=== PATIENT | male | born 1945 | race Caucasian/White ===

== ENCOUNTER 2016-09-16 05:48 | Emergency (ER) | payer OTHER ==
[~2016-09-16] VITALS: Ht 175.3 cm; Wt 86.3 kg
[2016-09-16 05:52] VITALS: Ht 175.3 cm; Wt 86.3 kg
[2016-09-16] MEDS ORDERED: MECLIZINE 12.5 MG TAB PO ONE (06:30)
[2016-09-16 06:52] LABS: ADD SCAN DIFF NO
[2016-09-16 06:55] LABS: BASOPHILS % 0.3 % (0.0-2.0); EOSINOPHILS # 0.2 10^3/ul (0.0-0.5); EOSINOPHILS % 2.5 % (0.0-7.0); HEMOGLOBIN 14.1 g/dl (14.0-18.0); LYMPHOCYTES % 28.7 % (15.0-51.0); MEAN CORPUSCULAR HEMOGLOBIN 30.1 pg (29.0-33.0); MEAN CORPUSCULAR HGB CONC 33.6 g/dl (32.0-37.0); MEAN CORPUSCULAR VOLUME 89.7 fl (82.0-101.0); MEAN PLATELET VOLUME 9.5 fl (7.4-10.4); MONOCYTE # 0.6 10^3/ul (0.3-0.9); MONOCYTES % 7.7 % (0.0-11.0); NEUTROPHIL # 4.3 10^3/ul (1.6-7.5); PLATELET COUNT 246 10^3/UL (140-415); RED BLOOD COUNT 4.68 10^6/ul (4.70-6.10); RED CELL DISTRIBUTION WIDTH 13.1 % (11.5-14.5); WHITE BLOOD COUNT 7.1 10^3/ul (4.8-10.8)
[2016-09-16 07:12] LABS: CHLORIDE 99 mmol/L (97-110); INR 0.89; PT RATIO 0.9
[2016-09-16 07:13] LABS: PARTIAL THROMBOPLASTIN TIME 26.5 Sec (25.0-35.0); POTASSIUM 3.8 mmol/L (3.5-5.1); SODIUM 135 mmol/L (135-144)
--- NOTE | 2016-09-16 07:14 | RADRPT ---
PROCEDURE: CT brain without contrast. CLINICAL INDICATION: Dizziness. TECHNIQUE: CT scan of the brain was performed on a multi-detector high-resolution CT scanner. Co ntiguous axial images were obtained from the skull base to the vertex without intravenous contrast. Coronal and sagittal reformatted images were also obtained. Images were reviewed on the PACS works tation. One or more of the following dose reduction techniques were used: - Automated exposure control. - Adjustment of the mA and/or kV according to patient size. - Use of iterative reconstruction technique. Exam CTD/vol = 45.01 mGy. Total exam DLP = 810.25 mGy-cm. COMPARISON: None. FINDINGS: The ventricles and cortical sulci are prominent consistent with mild age related volume loss. There is no area of abnormal attenuation within the brain parenchyma. There is no mass effect or midline shift. There is no intracranial hemorrhage or abnormal extra-axial collection. There are atheroscl erotic calcifications within bilateral distal internal carotid arteries. The calvarium is intact. There is no evidence of fracture. Visualized paranasal sinuses and mastoi d air cells are clear. IMPRESSION: No acute intracranial abnormality identified. Mild age related volume loss. Cerebral atherosclerosis. .Florentin Pearce MD, MD Date Time Electronically viewed and signed by .Florentin Pearce MD, MD on 09/16/2016 07:14 .T/
[2016-09-16 07:15] LABS: ANION GAP 14 (8-16); CARBON DIOXIDE 26 mmol/L (21-31); CREATININE 0.68 mg/dl (0.61-1.24)
[2016-09-16 07:16] LABS: BLOOD UREA NITROGEN 23 mg/dl (7-20); CALCIUM 8.6 mg/dl (8.4-10.2); GLUCOSE 180 mg/dl (70-220)
--- NOTE | 2016-09-16 07:22 | RADRPT ---
PROCEDURE: XR Chest. CLINICAL INDICATION: Possible stroke. TECHNIQUE: Single frontal chest x-ray. COMPARISON: None available. FINDINGS: The cardiomediastinal silhouette is unremarkable. Aortic atherosclerotic vascular calcifications are identified. No pneumothorax, pleural effusion or consolidation is seen. There are multilevel mild degenerative changes of thoracic spine with decreased disk spaces and oste ophytosis. IMPRESSION: 1. No acute cardiopulmonary abnormality. 2. Aortic atherosclerosis. RPTAT: HFN .Afia Prescott MD, Date Time Electronically viewed and signed by .Afia Prescott MD, on 09/16/2016 07:21 .N/
[2016-09-16 07:39] LABS: TROPONIN-I < 0.012 ng/ml (0.00-0.12)
[2016-09-16] MEDS ORDERED: MECL12.574 PO (08:09)
--- NOTE | 2016-09-16 08:09 | ERD ---
ER Documentation Chief Complaint Date/Time DATE: 09/16/16 TIME: 08:09 Chief Complaint dizzinessx 1 week HPI Patient is a 71-year-old male with diabetes who presents with dizziness. The patient feels like the room is spinning. The symptoms started 5 days ago. They are still there now. He has mild chest pain. He has had no treatment as of yet. He has no fevers. The symptoms are constant. Upon review of old medical records this is the patient's first visit to the emergency department. He says that his primary doctor is Dr. La. ROS All systems reviewed and are negative except as per history of present illness. Medications Home Meds Active Scripts Meclizine Hcl* (Antivert*) 12.5 Mg Tab, 25 MG PO Q6H Y for DIZZINESS, #20 TAB Prov:SHANDA SCHOFIELD MD 09/16/16 Allergies Allergies: Coded Allergies: No Known Allergy (Unverified , 09/16/16) PMhx/Soc Positive for diabetes History of Surgery: No Anesthesia Reaction: No Hx Neurological Disorder: No Hx Respiratory Disorders: No Hx Cardiac Disorders: No Hx Psychiatric Problems: No Hx Miscellaneous Medical Probl: No Hx Alcohol Use: No Hx Substance Use: No Hx Tobacco Use: No Smoking Status: Never smoker FmHx Family History: diabetes Physical Exam Vitals Vital Signs Date Time Temp Pulse Resp B/P Pulse Ox O2 Delivery O2 Flow Rate FiO2 09/16/16 05:52 96.9 66 20 142/76 99 Physical Exam Const: No acute distress Head: Atraumatic Eyes: Normal Conjunctiva ENT: Normal External Ears, Nose and Mouth. Neck: Full range of motion..~ No meningismus. Resp: Clear to auscultation bilaterally Cardio: Regular rate and rhythm, no murmurs Abd: Soft, non tender, non distended. Normal bowel sounds Skin: No petechiae or rashes Back: No midline or flank tenderness Ext: No cyanosis, or edema Neur: Awake and alert, no slurred speech, strength is 5 out of 5 in all 4 extremities, no pronator drift, cranial nerves II through XII are intact Psych: Normal Mood and Affect Result Diagram: 09/16/16 0630 09/16/16 0630 Results 24 hrs Laboratory Tests Test 09/16/16 06:30 White Blood Count 7.110^3/ul Red Blood Count 4.6810^6/ul Hemoglobin 14.1g/dl Hematocrit 42.0% Mean Corpuscular Volume 89.7fl Mean Corpuscular Hemoglobin 30.1pg Mean Corpuscular Hemoglobin Concent 33.6g/dl Red Cell Distribution Width 13.1% Platelet Count 17830^3/UL Mean Platelet Volume 9.5fl Neutrophils % 60.0% Lymphocytes % 28.7% Monocytes % 7.7% Eosinophils % 2.5% Basophils % 0.3% Nucleated Red Blood Cells % 0.0/100WBC Neutrophils # 4.310^3/ul Lymphocytes # 2.010^3/ul Monocytes # 0.610^3/ul Eosinophils # 0.210^3/ul Basophils # 0.010^3/ul Nucleated Red Blood Cells # 0.010^3/ul Prothrombin Time 12.0Sec Prothrombin Time Ratio 0.9 INR International Normalized Ratio 0.89 Activated Partial Thromboplast Time 26.5Sec Sodium Level 135mmol/L Potassium Level 3.8mmol/L Chloride Level 99mmol/L Carbon Dioxide Level 26mmol/L Anion Gap 14 Blood Urea Nitrogen 23mg/dl Creatinine 0.68mg/dl Glucose Level 180mg/dl Hemoglobin A1c % Calcium Level 8.6mg/dl Troponin I < 0.012ng/ml Current Medications Medications (Trade) Dose Ordered Sig/Emanuel Route PRN Reason Start Time Stop Time Status Last Admin Dose Admin Meclizine HCl (Antivert) 25 mg ONCE ONCE PO 09/16/16 06:30 09/16/16 06:31 DC 09/16/16 06:51 Procedures/MDM EKG read by me: Rate/Rhythm: Sinus bradycardia rate of 58 Intervals: Normal Impression: Sinus bradycardia without ischemia CT brain shows no acute normality per radiology. Chest x-ray negative per radiology. Patient is a 71-year-old male with diabetes who presents with dizziness. He had a full workup including laboratory studies, CT scan of the brain, and EKG. At this point there is no sign of obvious stroke, intracranial mass, or intracranial hemorrhage. I believe the patient likely has vertigo. However the patient will need close follow-up with his primary doctor within 24-48 hours for reevaluation. He was given meclizine and feels better. He can return for any worsening symptoms. Neurologic exam was normal. Departure Diagnosis: Primary Impression: Vertigo Additional Impression: Dizziness Condition: Fair Patient Instructions: Dizziness, Unk Cause Referrals: [facility] Usted se olmos hecho un examen mdico de control que le indica que no est en daniel condicin que requiera tratamiento urgente en el Departamento de Emergencia. Un estudio ms profundo y el tratamiento de martin condicin pueden esperar sin ningn riesgo hasta que usted sea atendida/o en el consultorio de martin mdico o daniel cl korey. Es responsabilidad suya arreglar daniel donovan para el seguimiento del ankita. MANEJO DE CONDICIONES NO URGENTES EN EL FUTURO 1) Si usted tiene un mdico de atencin primaria: Usted debera llamar a martin mdico de atencin primaria antes de venir al departamento de emergencia. Despus de las horas de consultorio, martin doctor o martin asociado/a est disponible por telfono. El mdico o enfermero de miller en el servicio telefnico puede asesorarle por little medio para atender el problema, o ankita contrario se puede programar daniel donovan. 2) Si usted no tiene un mdico de atencin primaria: Llame al mdico o clnica de referencia que aparece abajo jett las horas de consultorio para hacer daniel donovan para que le vean. CLINICAS: [facility] [phone] [facility] [phone] [facility]. [facility] [phone] [facility]. [facility] [phone] [facility]. [place] [id number] [phone] [facility]. [phone] [address] Additional Instructions: Llame al doctor MAANA y liang daniel DONOVAN PARA DENTRO DE 1-2 DUTTON.Dgale a la secretaria que nosotros le instruimos hacer esta donovan.Avise o llame si martin condicin se empeora antes de la donovan. Regresa aqui si peor o no mejor. SHANDA SCHOFIELD MD September 16, 2016 08:09
[2016-09-16 08:33] VITALS: BP 126/74; PULSE 76; RESP 20
== END 2016-09-16 08:43 | disposition home or self-care (01) ==
LOC: E/R 05:48
DX: R42 Dizziness and giddiness (principal); E11.9 Type 2 diabetes mellitus without complications; R07.9 Chest pain, unspecified
CPT/HCPCS: 36415; 70450; 71010; 80048; 83036; 84484; 85025; 85610; 85730; 93005

== ENCOUNTER 2018-08-10 06:24 | Day surgery (SDC) | payer OTHER ==
[~2018-08-10] VITALS: Ht 175.3 cm; Wt 181.0 kg
[2018-08-10] VITALS (8 sets, daily range): BP systolic 106–147; BP diastolic 62–78; PULSE 62–66; RESP 12–16; Ht 175.3 cm; Wt 181.0 kg
[~2018-08-10 06:24] MED LIST: MECL12.574 PO
--- NOTE | 2018-08-10 06:58 | PREOPHP ---
DATE OF ADMISSION: 08/10/2018 HISTORY OF PRESENT ILLNESS: This 75-year-old patient is admitted for elective cataract surgery of th e right eye. The patient has had progressive deterioration of vision in both eyes over the past year s' time without prior history of eye disease or injury. Patient's systemic history is positive for i nsulin-dependent diabetes mellitus and systemic hypertension. CURRENT MEDICATIONS INCLUDE: 1. Lisinopril. 2. Januvia. 3. Insulin. 34 Aspirin (stopped 1 week prior to surgery). ALLERGIES: There are no known allergies. PHYSICAL EXAMINATION: The visual acuity with best correction is 20/100 in the right eye and 20/80 in the left eye. Slit lamp examination reveals a diffuse posterior subcapsular cataract in the right e ye and cortical and vacuolar cataract in the left eye. Applanation tonometry is 17 mmHg in both eyes . Examination of the retina is grossly within normal limits without evidence of diabetic retinopathy . DIAGNOSIS: Posterior subcapsular cataract, left eye. PLAN: Cataract extraction with lens implant, left eye. The risks and alternatives to the surgery olmos ve been discussed with the patient as well as the hope for improvement of visual acuity leading to gr eater ability to perform activities of daily living. Dictated By: HOLLY BOCANEGRA/BRUNILDA Conf#: [id number] DID#: [id number]
[2018-08-10] MEDS ORDERED: TROPICAMIDE 1% 15 ML OPH OPER SCH (07:00)
[2018-08-10] MEDS ORDERED: DICLOFENAC 0.1% 2.5 ML OPH OPER SCH (07:00)
[2018-08-10] MEDS ORDERED: SOD CHLORIDE 0.9% 1,000 ML IV SCH (07:00)
[2018-08-10] MEDS ORDERED: CYCLOPENTOLATE/PHENYLEPH 2 ML OPH OPER SCH (07:00)
[2018-08-10] MEDS ORDERED: MOXIFLOXACIN 0.5% 3 ML OPH OPER SCH (07:00)
--- NOTE | 2018-08-10 07:48 | PREAC ---
Date/Time of Note Date/Time of Note DATE: 08/10/18 TIME: 07:47 Anesthesia Eval and Record Evaluation Time Pre-Procedure Interview DATE: 08/10/18 TIME: 07:47 Age 73 Sex male NPO: 8 hrs Preoperative diagnosis right eye cataract Planned procedure right eye cataract extraction intraocular lens implant Past Medical History Past Medical History: Includes Cardio: HTN, Dyslipidemia Endo: Diabetes (preop glucose 181) Surgery & Anesthesia Issues No known issue Meds Anticoagulation: No Beta Burt within 24 hr: No Reason Beta Burt not given: Pt. not on B-Burt Active Scripts Meclizine Hcl* (Antivert*) 12.5 Mg Tab, 25 MG PO Q6H PRN for DIZZINESS, #20 TAB Prov:SHANDA SCHOFIELD MD 09/16/16 Reported Medications Insulin Aspart (Novolog Mix (70/30)) 100 Units/Ml Soln, 38 SC WITH BREAKFAST DINNE, VIAL 08/10/18 Current Medications Diclofenac Sodium (Voltaren 0.1%) 1 drop Q5 MIN X 3 OPER Last administered on 08/10/18at 07:38; Admin Dose 1 DROP; Start 08/10/18 at 07:00 Tropicamide (Mydriacyl 1%) 1 drop Q5 MIN X3 OPER Last administered on 08/10/18at 07:38; Admin Dose 1 DROP; Start 08/10/18 at 07:00 Moxifloxacin HCl (Vigamox) 1 drop Q5 MIN X 3 OPER Last administered on 08/10/18at 07:39; Admin Dose 1 DROP; Start 08/10/18 at 07:00 Cyclopentolate/ Phenylephrine (Cyclomydril Oph 2 ml) 1 drop Q5 MIN X 3 OPER Last administered on 08/10/18at 07:39; Admin Dose 1 DROP; Start 08/10/18 at 07:00 Sodium Chloride 1,000 ml @ 25 mls/hr Q24H IV ; Start 08/10/18 at 07:00 Meds reviewed: Yes Allergies Coded Allergies: No Known Allergy (Unverified , 08/10/18) Allergies Reviewed: Yes Labs/Studies Labs Reviewed: Reviewed by anesthesiologist test: N/A Studies: ECG, CXR Pre-procedure Exam Airway: Adequate mouth opening, Adequate thyromental dist Mallampati: Mallampati II Teeth: Normal Lung: Normal Heart: Normal ASA Physical Status ASA physical status: 3 Emergency: None Planned Anesthetic General/MAC: MAC Planned Pain Management Parenteral pain med, Local by surgeon Pre-operative Attestations Prior to commencing anesthesia and surgery, the patient was re-evaluated, there was verification of: *The patient's identity *The results of appropriate recent lab work and preoperative vital signs *The above evaluation not changing prior to induction *Anesthetic plan, risk benefits, alternative and complications discussed with patient/family; questions answered; patient/family understands, accepts and wishes to proceed. JAYLA MCKEON Aug 10, 2018 07:48
[2018-08-10] MEDS ORDERED: LIDOCAINE 4% (MPF) 5 ML INJ ONE (08:17)
[2018-08-10] MEDS ORDERED: CEFAZOLIN 1 GM INJ ONE (08:17)
[2018-08-10] MEDS ORDERED: CARBACHOL 0.01% 1.5 ML OPH INJ ONE (08:17)
[2018-08-10] MEDS ORDERED: TETRACAINE 0.5% 4 ML OPH ONE (08:17)
[2018-08-10] MEDS ORDERED: GENTAMICIN 80 MG INJ ONE (08:17)
[2018-08-10] MEDS ORDERED: DEXAMETHASONE 4 MG/ML 1 ML INJ ONE (08:17)
[2018-08-10] MEDS ORDERED: NOVMIX SC (08:21)
[2018-08-10] MEDS ORDERED: FENTAnyl 50 MCG/ML VIAL ONE (08:35)
[2018-08-10] MEDS ORDERED: PROPOFOL 20 ML ONE (08:43)
[2018-08-10] MEDS ORDERED: FENTAnyl 50 MCG/ML VIAL IV PRN ×3 (09:00)
[2018-08-10] MEDS ORDERED: LABETALOL HCL 20MG INJ IV PRN (09:00)
[2018-08-10] MEDS ORDERED: hydrALAzine 20 MG INJ IV PRN (09:00)
[2018-08-10] MEDS ORDERED: OXYCODONE/ACETAMINOPHEN (5/325) TAB PO PRN ×2 (09:00)
[2018-08-10] MEDS ORDERED: ONDANSETRON 4 MG INJ IV PRN (09:00)
[2018-08-10] MEDS ORDERED: NA HYALURONATE/CHONDROITIN 0.5 ML SYG RIGHT EYE ONE (09:10)
--- NOTE | 2018-08-10 09:10 | SIPON ---
Date/Time of Note Date/Time of Note DATE: 08/10/18 TIME: 09:09 Operative Report Preoperative Diagnosis nuclear scleroticand posterior subcapsular cataract od Postoperative Diagnosis same Operation/Procedure Performed cataract extraction with lens implant od Surgeon holly urias manufacturing assistant none Anesthesia: MAC Estimated blood loss: none Transfusion Required none Specimen none Grafts/Implants posterior chamber lens implant Complications none HOLLY URIAS MD Aug 10, 2018 09:10
--- NOTE | 2018-08-10 09:52 | PAC ---
Date/Time of Note Date/Time of Note DATE: 08/10/18 TIME: 09:52 Post-Anesthesia Notes Post-Anesthesia Note Last documented vital signs Vital Signs Date Temp Pulse Resp B/P (MAP) Pulse Ox O2 O2 Flow FiO2 Time Delivery Rate 08/10/18 64 15 109/62 96 Room Air 09:36 (78) 08/10/18 97.8 09:11 Activity: WNL Respiratory function: WNL Cardiovascular function: WNL Mental status: Baseline Pain reasonably controlled: Yes Hydration appropriate: Yes Nausea/Vomiting absent: Yes JAYLA MCKEON Aug 10, 2018 09:52
--- NOTE | 2018-08-10 14:10 | OPR ---
DATE OF OPERATION: 08/10/2018 PREOPERATIVE DIAGNOSIS: Nuclear sclerotic and posterior subcapsular cataract, right eye. POSTOPERATIVE DIAGNOSIS: Nuclear sclerotic and posterior subcapsular cataract, right eye. OPERATION PERFORMED: Cataract extraction with lens implant, right eye. SURGEON: Holly Shepard MD. ANESTHESIOLOGIST: Dutch Suarez CRNA. ANESTHESIA: Local standby. OPERATION: Phacoemulsification with posterior chamber intraocular lens implant, right eye. PROCEDURE: The patient was brought to the operating room and placed on the table with an IV in place and the patient attached to an associate professor of counseling. Oxygen was given via face mask. After some intravenous sedation was administered, local anesthesia was given using Xylocaine 2% with epinephrine, mixed with Marcaine 0.5%. This was given in a lid block and retrobulbar injection. The p atient was then prepped and draped in the usual sterile manner. A wire lid speculum was inserted between the lids of the right eye. A Superblade was used to enter th e anterior chamber at the corneoscleral limbus at the 10:30 o'clock position. A separate incision was made using a 3.0-mm keratome which entered the corneoscleral junction at the 12 o'clock position. Th rough this 3-mm opening, an irrigating cystotome was introduced into the anterior chamber. The chambe r was filled with Viscoat and an anterior capsulotomy was performed. Balanced salt solution was then used for hydrodissection of the lens. A phacoemulsification handpiece was then brought into the fiel d and introduced into the anterior chamber. The lens nucleus was emulsified using a deep groove and c racking the nucleus into quadrants. Following this, each quadrant was aspirated and emulsified at the pupillary margin. After this was completed, the irrigation/aspiration handpiece was brought to the field, introduced in to the posterior chamber, and the lens cortical material was removed. When this was completed, additi onal Viscoat was injected into the anterior and posterior chambers. The 3-mm opening had its internal lips enlarged, and then the posterior chamber intraocular lens mario uring 20.0 diopters ([employer] Model LI61AO) was then injected into the posterior c hamber using the lens injector system. After the leading haptic was introduced into the capsular bag and the lens optic was present in the center of the eye, the injector was removed and the trailing olmos ptic was grasped with non-toothed forceps and introduced into the capsular fold superiorly. A Sinskey hook was then used to rotate the intraocular lens so that the lips were oriented in the horizontal m eridian. One 10-0 nylon suture was placed across the wound. Prior to tying, the irrigation/aspiration handpiece was reintroduced into the anterior chamber to rem ove the Viscoat. Miochol was instilled to constrict the pupil, and then the 10-0 nylon suture was tie d. The ends were cut short and then the knot was buried. Then, 0.5 mL of dexamethasone and 0.5 mL of Ancef were injected into the sub-Tenon space in the infer ior fornix. Ciloxan drops were then placed on the surface of the eye. The speculum was removed and a patch was applied. The patient then left the operating room in satisfactory condition. Dictated By: HOLLY BOCANEGRA/BRUNILDA Conf#: [id number] DID#: [id number]
== END 2018-08-10 10:21 | disposition home or self-care (01) ==
LOC: SDS 06:24
PROVIDERS: ATTEND Ophthalmology
DX: H25.11 Age-related nuclear cataract, right eye (principal); E11.9 Type 2 diabetes mellitus without complications; I10 Essential (primary) hypertension
CPT/HCPCS: 66984; 82962; J0690; J1100; J1580; J3010; V2632

== ENCOUNTER 2018-08-24 08:24 | Day surgery (SDC) | payer OTHER ==
[2018-08-24] VITALS (9 sets, daily range): BP systolic 98–122; BP diastolic 60–71; PULSE 60–72; RESP 16–26; Ht 165.1 cm; Wt 94.1 kg
[~2018-08-24] VITALS: Ht 165.1 cm; Wt 94.1 kg
--- NOTE | 2018-08-24 08:20 | PREOPHP ---
DATE OF ADMISSION: 08/24/2018 HISTORY OF PRESENT ILLNESS: This 73-year-old admitted for repositioning of an iris prolapse of the r ight eye. Two weeks ago, the patient underwent cataract extraction with lens implant of the right ey e in an uneventful surgery. He was subsequently seen on the first postoperative day and there was no evidence of wound dehiscence or iris prolapse. The patient now returns 2 weeks later without any vi sual complaints or pain involving the right eye. PHYSICAL EXAMINATION: The patient is noted to have corrected visual acuity of 20/60+2 in the right e ye. Slit lamp examination notes that there is of iris which has prolapsed out of the corneal w ound and is exposed to the exterior. The patient's anterior chamber still has a moderate degree of i nflammatory cells. The intraocular lens is in appropriate position. Applanation tonometry is 20 mmH g. DIAGNOSTIC IMPRESSION: Postoperative iris prolapse, right eye. PLAN: Repositioning prolapsed iris and closure of the corneal wound, right eye. COMMENT: This patient should have resolution of the inflammation allowing him to obtain a normal vis ion without being endanger from developing secondary ocular infection which may cause endophthalmitis as an unfortunate serious complication. The patient understands this and agrees to proceed with ashley jones. Dictated By: HOLLY BOCANEGRA/BRUNILDA Conf#: [id number] DID#: [id number]
--- NOTE | 2018-08-24 08:23 | SIPON ---
Date/Time of Note Date/Time of Note DATE: 08/24/18 TIME: 08:21 Operative Report Preoperative Diagnosis nuclear sclerotic cataract os Postoperative Diagnosis same Operation/Procedure Performed cataract extraction with lens implant os Surgeon holly urias assistant editor none Anesthesia: MAC Estimated blood loss: none Transfusion Required none Specimen none Grafts/Implants posterior chamber lens implant Complications none HOLLY URIAS MD Aug 24, 2018 08:22
[~2018-08-24 08:24] MED LIST changes: +NOVMIX SC
[2018-08-24] MEDS ORDERED: SOD CHLORIDE 0.9% 1,000 ML IV SCH (09:00)
[2018-08-24] MEDS ORDERED: MOXIFLOXACIN 0.5% 3 ML OPH OPER SCH (09:00)
[2018-08-24] MEDS ORDERED: SITA100T11 PO (09:09)
[2018-08-24] MEDS ORDERED: LISI40TA3 PO (09:09)
[2018-08-24] MEDS ORDERED: ATOR40TA68 PO (09:09)
[2018-08-24] MEDS ORDERED: LIDOCAINE 4% (MPF) 5 ML INJ ONE (10:14)
[2018-08-24] MEDS ORDERED: TOBRAMYCIN/DEXAMETH 3.5 GM OPH OINT ONE (10:15)
[2018-08-24] MEDS ORDERED: CARBACHOL 0.01% 1.5 ML OPH INJ ONE (10:15)
[2018-08-24] MEDS ORDERED: BALANCED SALT SOLN 15 ML OPH IRRIG ONE (10:15)
[2018-08-24] MEDS ORDERED: TETRACAINE 0.5% 4 ML OPH ONE (10:15)
--- NOTE | 2018-08-24 10:18 | PREAC ---
Date/Time of Note Date/Time of Note DATE: 08/24/18 TIME: 10:17 Anesthesia Eval and Record Evaluation Time Pre-Procedure Interview DATE: 08/24/18 TIME: 10:17 Age 73 Sex male NPO: 8 hrs Preoperative diagnosis right iris prolapse Planned procedure right iris prolapse repair Past Medical History Past Medical History: Includes Cardio: HTN, Dyslipidemia Endo: Diabetes Surgery & Anesthesia Issues No known issue Meds Anticoagulation: No Beta Burt within 24 hr: No Reason Beta Burt not given: Pt. not on B-Burt Reported Medications Lisinopril* (Lisinopril*) 40 Mg Tablet, 40 MG PO DAILY, #30 TAB 08/24/18 Atorvastatin* (Atorvastatin*) 40 Mg Tablet, 40 MG PO QHS, #30 TAB 08/24/18 Sitagliptin* (Januvia*) 100 Mg Tablet, 100 MG PO DAILY, #30 TAB 08/24/18 Insulin Aspart (Novolog Mix (70/30)) 100 Units/Ml Soln, 38 SC WITH BREAKFAST DINNE, VIAL 08/10/18 Discontinued Scripts Meclizine Hcl* (Antivert*) 12.5 Mg Tab, 25 MG PO Q6H PRN for DIZZINESS, #20 TAB Prov:SHANDA SCHOFIELD MD 09/16/16 Current Medications Moxifloxacin HCl (Vigamox) 1 drop Q5 MIN X 3 OPER Last administered on 08/24/18at 09:08; Admin Dose 1 DROP; Start 08/24/18 at 09:00 Sodium Chloride 1,000 ml @ 25 mls/hr Q24H IV Last administered on 08/24/18at 09:13; Admin Dose 25 MLS/HR; Start 08/24/18 at 09:00 Meds reviewed: Yes Allergies Coded Allergies: No Known Allergy (Unverified , 08/24/18) Allergies Reviewed: Yes Labs/Studies Labs Reviewed: Reviewed by anesthesiologist test: N/A Pre-procedure Exam Last vitals Vital Signs Date Temp Pulse Resp B/P (MAP) Pulse Ox O2 O2 Flow FiO2 Time Delivery Rate 08/24/18 98.6 72 16 115/71 96 09:27 (86) Airway: Adequate mouth opening, Adequate thyromental dist Mallampati: Mallampati II Teeth: Normal Lung: Normal Heart: Normal ASA Physical Status ASA physical status: 2 Emergency: None Planned Anesthetic General/MAC: MAC Planned Pain Management Parenteral pain med Pre-operative Attestations Prior to commencing anesthesia and surgery, the patient was re-evaluated, there was verification of: *The patient's identity *The results of appropriate recent lab work and preoperative vital signs *The above evaluation not changing prior to induction *Anesthetic plan, risk benefits, alternative and complications discussed with patient/family; questions answered; patient/family understands, accepts and wishes to proceed. ALYCIA LANG Aug 24, 2018 10:18
[2018-08-24] MEDS ORDERED: LIDOCAINE 2% (SDV) 5 ML INJ ONE (10:22)
[2018-08-24] MEDS ORDERED: PROPOFOL 20 ML ONE (10:22)
--- NOTE | 2018-08-24 11:05 | PAC ---
Date/Time of Note Date/Time of Note DATE: 08/24/18 TIME: 11:05 Post-Anesthesia Notes Post-Anesthesia Note Last documented vital signs Vital Signs Date Temp Pulse Resp B/P (MAP) Pulse Ox O2 O2 Flow FiO2 Time Delivery Rate 08/24/18 98.6 72 16 115/71 96 1105 (86) Activity: WNL Respiratory function: WNL Cardiovascular function: WNL Mental status: Baseline Pain reasonably controlled: Yes Hydration appropriate: Yes Nausea/Vomiting absent: Yes ALYCIA LANG Aug 24, 2018 11:05
--- NOTE | 2018-08-24 11:08 | SIPON ---
Date/Time of Note Date/Time of Note DATE: 08/24/18 TIME: 11:07 Operative Report Preoperative Diagnosis iris prolapse, od Postoperative Diagnosis same Operation/Procedure Performed repositing prolapsed iris od Surgeon holly urias speech language assistant none Anesthesia: MAC Estimated blood loss: none Transfusion Required none Specimen none Grafts/Implants none Complications none HOLLY URIAS MD Aug 24, 2018 11:08
[2018-08-24] MEDS ORDERED: hydrALAzine 20 MG INJ IV PRN (11:30)
[2018-08-24] MEDS ORDERED: ONDANSETRON 4 MG INJ IV PRN (11:30)
[2018-08-24] MEDS ORDERED: OXYCODONE/ACETAMINOPHEN (5/325) TAB PO PRN ×2 (11:30)
[2018-08-24] MEDS ORDERED: LABETALOL HCL 20MG INJ IV PRN (11:30)
[2018-08-24] MEDS ORDERED: EPHEDrine SULFATE 50 MG/5 ML SYG IV PRN (11:30)
[2018-08-24] MEDS ORDERED: FENTAnyl 50 MCG/ML VIAL IV PRN ×2 (11:30)
[2018-08-24] MEDS ORDERED: DIPHENHYDRAMINE 50 MG INJ IV PRN (11:30)
[2018-08-24] MEDS ORDERED: MIDAZOLAM 1 MG/ML 2 ML INJ IV PRN (11:30)
--- NOTE | 2018-08-24 13:33 | OPR ---
DATE OF OPERATION: 08/24/2018 PREOPERATIVE DIAGNOSIS: Iris prolapse, right eye. POSTOPERATIVE DIAGNOSIS: Iris prolapse, right eye. OPERATION PERFORMED: Repositing of prolapsed iris and suturing of corneal wound, right eye. SURGEON: Holly Shepard MD ANESTHESIOLOGIST: Dr. Quiros DESCRIPTION OF PROCEDURE: The patient is 2 weeks status post cataract surgery of the right eye. He was doing well initially, but on the 2-week visit, the patient returned and was noted to have prolaps ed iris at the site of the surgical wound. The patient is brought to the operating room on an on an eye gurney, positioned appropriately, attached to electrocardiogram monitoring, given oxygen via face mask. The patient received some intravenous sedation and then local anesthesia using Marcaine 4% gi baljinder in lid block and retrobulbar injection. The patient was then prepped and draped in the usual sondra rile manner and a speculum was inserted between the lids of the right eye. An attempt is made to rep osit the prolapsed iris by using nontoothed forceps and Viscoat injection. However, this failed to a llow the iris to reposit itself in its appropriate away from the wound; therefore, it was decided to open the once 10-0 nylon suture that had been placed at the end of surgery, remove it and then inject some Miostat to constrict the pupil. With the addition of some Viscoat, suturing of the wound was p erformed without any iris tissue incorporated in the suturing. Three separate 10-0 nylon sutures wer e placed and tied and the ends were cut short and the knots were buried. A separate paracentesis inc ision was then made in the nasal quadrant through clear cornea using a Superblade and a spatula was u sed to sweep the iris away from the corneal wound. Additional Miostat was instilled and then it was noted that the pupil assumed became miotic and was round in shape, indicating that the iris was no lo nger at the internal lips of the wound. The speculum was then removed. Vigamox drops were placed on the surface of the eye and then the patient left the operating room with an eye shield in place. Dictated By: HOLLY BOCANEGRA/BRUNILDA Conf#: [id number] DID#: [id number]
== END 2018-08-24 13:13 | disposition home or self-care (01) ==
LOC: SDS 08:24
PROVIDERS: ATTEND Ophthalmology
DX: H21.89 Other specified disorders of iris and ciliary body (principal); I10 Essential (primary) hypertension; E78.5 Hyperlipidemia, unspecified; E11.9 Type 2 diabetes mellitus without complications; Z79.84 Long term (current) use of oral hypoglycemic drugs; Z79.4 Long term (current) use of insulin
CPT/HCPCS: 82962

== ENCOUNTER 2018-11-09 06:30 | Day surgery (SDC) | payer OTHER ==
--- NOTE | 2018-11-08 16:03 | PREOPHP ---
DATE OF ADMISSION: 11/09/2018 HISTORY OF PRESENT ILLNESS: This 73-year-old patient is admitted for elective cataract surgery of th e left eye. The patient has had progressive deterioration of vision in both eyes and 3 months ago un derwent cataract surgery of the right eye with good visual result. The patient's systemic history is positive for insulin-dependent diabetes mellitus and systemic hypertension. CURRENT MEDICATIONS INCLUDE: 1. Lisinopril. 2. Januvia. 3. Insulin. 4. Aspirin (discontinued 1 week prior to surgery). ALLERGIES: THERE ARE NO KNOWN ALLERGIES. PHYSICAL EXAMINATION: The visual acuity with best correction is 20/30 in the right eye and 20/200 in the left eye. Slit lamp examination of note is a posterior chamber intraocular lens in the right ey e and anterior cortical nuclear sclerotic and posterior subcapsular cataract in the left eye. Applan ation tonometry is 16 mmHg. Examination of the retina does not reveal the presence of any diabetic r etinopathy. DIAGNOSIS: Mixed cataract, left eye. PLAN: Cataract extraction with lens implant, left eye. The risks and alternatives to the surgery olmos ve been discussed with the patient as well as the hope for improvement of visual acuity leading to gr eater ability to perform activities of daily living. The patient understands this and agrees to proc eed with surgery. Dictated By: HOLLY BOCANEGRA/BRUNILDA Conf#: [id number] DID#: [id number]
[~2018-11-09] VITALS: Ht 175.3 cm; Wt 94.4 kg
[2018-11-09] VITALS (10 sets, daily range): BP systolic 99–120; BP diastolic 59–70; PULSE 62–66; RESP 13–22; Ht 175.3 cm; Wt 94.4 kg
[~2018-11-09 06:30] MED LIST changes: +ATOR40TA68 PO; +LISI40TA3 PO; -MECL12.574 PO; +SITA100T11 PO
[2018-11-09] MEDS ORDERED: SOD CHLORIDE 0.9% 1,000 ML IV SCH (07:00)
[2018-11-09] MEDS ORDERED: TROPICAMIDE 1% 15 ML OPH OPER SCH (07:00)
[2018-11-09] MEDS ORDERED: DICLOFENAC 0.1% 2.5 ML OPH OPER SCH (07:00)
[2018-11-09] MEDS ORDERED: BALANCED SALT SOLN OPH IRRIG 500 ML, GENTAMICIN 4 MG, EPINEPHrine 0.1 MG IRR SCH ×3 (07:00)
[2018-11-09] MEDS ORDERED: CYCLOPENTOLATE/PHENYLEPH 2 ML OPH OPER SCH (07:00)
[2018-11-09] MEDS ORDERED: MOXIFLOXACIN 0.5% 3 ML OPH OPER SCH (07:00)
[2018-11-09] MEDS ORDERED: INSULIN ASPART [NOVOLOG] 3 ML PEN SC ONE (08:30)
[2018-11-09] MEDS ORDERED: INSU100I33 SC (08:31)
[2018-11-09] MEDS ORDERED: METF850T13 PO (08:32)
--- NOTE | 2018-11-09 08:51 | PREAC ---
Date/Time of Note Date/Time of Note DATE: 11/09/18 TIME: 08:49 Anesthesia Eval and Record Evaluation Time Pre-Procedure Interview DATE: 11/09/18 TIME: 08:49 Age 73 Sex male NPO: 8 hrs Preoperative diagnosis left eye cataract Planned procedure L eye CEIOL implant Past Medical History Past Medical History: Includes Cardio: HTN, Dyslipidemia Endo: Diabetes GI: Obesity Surgery & Anesthesia Issues No known issue Meds Anticoagulation: No Beta Burt within 24 hr: No Reason Beta Burt not given: Pt. not on B-Burt Reported Medications Metformin Hcl* (Metformin Hcl*) 850 Mg Tablet, 850 MG PO WITH BREAKFAST, #30 TAB 11/09/18 Insulin Glargine,Hum.rec.anlog (Basaglar Kwikpen U-100) 100 Unit/1 Ml Insuln.pen, 35 UNIT SC BID, EA 11/09/18 Lisinopril* (Lisinopril*) 40 Mg Tablet, 40 MG PO DAILY, #30 TAB 08/24/18 Atorvastatin* (Atorvastatin*) 40 Mg Tablet, 40 MG PO QHS, #30 TAB 08/24/18 Sitagliptin* (Januvia*) 100 Mg Tablet, 100 MG PO DAILY, #30 TAB 08/24/18 Discontinued Reported Medications Insulin Aspart (Novolog Mix (70/30)) 100 Units/Ml Soln, 38 SC WITH BREAKFAST DINNE, VIAL 08/10/18 Current Medications Diclofenac Sodium (Voltaren 0.1%) 1 drop Q5 MIN X 3 OPER Last administered on 11/09/18at 08:10; Admin Dose 1 DROP; Start 11/09/18 at 07:00; Stop 11/09/18 at 23:59 Tropicamide (Mydriacyl 1%) 1 drop Q5 MIN X3 OPER Last administered on 11/09/18at 08:09; Admin Dose 1 DROP; Start 11/09/18 at 07:00; Stop 11/09/18 at 23:59 Moxifloxacin HCl (Vigamox) 1 drop Q5 MIN X 3 OPER Last administered on 11/09/18at 08:10; Admin Dose 1 DROP; Start 11/09/18 at 07:00; Stop 11/09/18 at 23:59 Cyclopentolate/ Phenylephrine (Cyclomydril Oph 2 ml) 1 drop Q5 MIN X 3 OPER Last administered on 11/09/18at 08:09; Admin Dose 1 DROP; Start 11/09/18 at 07:00; Stop 11/09/18 at 23:59 Sodium Chloride 1,000 ml @ 25 mls/hr Q24H IV Last administered on 11/09/18at 08:21; Admin Dose 25 MLS/HR; Start 11/09/18 at 07:00; Stop 11/09/18 at 23:59 Sod Cl/Ca Cl/Mg Cl/Pot Cl/ Gentamicin Sulfate/ Epinephrine ONCE IRR ; Start 11/09/18 at 07:00; Stop 11/09/18 at 23:59 Diagnostic Test (Pha) (Accu-Chek) 1 ea 2 HRS AFTER NOVOLOG ONCE XX ; Start 11/09/18 at 10:30; Stop 11/09/18 at 10:31 Meds reviewed: Yes Allergies Coded Allergies: No Known Allergy (Unverified , 11/09/18) Allergies Reviewed: Yes Labs/Studies Labs Reviewed: Reviewed by anesthesiologist (glucose 385 in SDS, informed Dr Shepard-wanted to lower glucose and recheck after intervention. recheck glucose 330.) test: N/A Studies: ECG Pre-procedure Exam Last vitals Vital Signs Date Temp Pulse Resp B/P (MAP) Pulse Ox O2 O2 Flow FiO2 Time Delivery Rate 11/09/18 98.1 64 18 120/66 98 Room Air 08:45 (84) Airway: Adequate mouth opening, Adequate thyromental dist Mallampati: Mallampati II Teeth: Normal Lung: Normal Heart: Normal ASA Physical Status ASA physical status: 3 Emergency: None Planned Anesthetic General/MAC: MAC Planned Pain Management Parenteral pain med, Local by surgeon Pre-operative Attestations Prior to commencing anesthesia and surgery, the patient was re-evaluated, there was verification of: *The patient's identity *The results of appropriate recent lab work and preoperative vital signs *The above evaluation not changing prior to induction *Anesthetic plan, risk benefits, alternative and complications discussed with patient/family; questions answered; patient/family understands, accepts and wishes to proceed. AJYLA MCKEON Nov 09, 2018 08:51
[2018-11-09] MEDS ORDERED: LABETALOL HCL 20MG INJ IV PRN (09:00)
[2018-11-09] MEDS ORDERED: ONDANSETRON 4 MG INJ IV PRN (09:00)
[2018-11-09] MEDS ORDERED: OXYCODONE/ACETAMINOPHEN (5/325) TAB PO PRN ×2 (09:00)
[2018-11-09] MEDS ORDERED: hydrALAzine 20 MG INJ IV PRN (09:00)
[2018-11-09] MEDS ORDERED: FENTAnyl 50 MCG/ML VIAL IV PRN ×3 (09:00)
[2018-11-09] MEDS ORDERED: FENTAnyl 50 MCG/ML VIAL ONE (09:29)
[2018-11-09] MEDS ORDERED: PROPOFOL 20 ML ONE (09:29)
--- NOTE | 2018-11-09 10:09 | SIPON ---
Date/Time of Note Date/Time of Note DATE: 11/09/18 TIME: 10:07 Operative Report Preoperative Diagnosis nuclear sclerotic & posterior subcapsular cataract os Postoperative Diagnosis same Operation/Procedure Performed cataract extraction with lens implant os Surgeon holly urias producer assistant none Anesthesia: MAC Estimated blood loss: none Transfusion Required none Specimen none Grafts/Implants posterior chamber lens implant Complications none HOLLY URIAS MD Nov 09, 2018 10:09
[2018-11-09] MEDS ORDERED: CEFAZOLIN 1 GM INJ ONE (10:10)
[2018-11-09] MEDS ORDERED: TETRACAINE 0.5% 4 ML OPH ONE (10:10)
[2018-11-09] MEDS ORDERED: LIDOCAINE 4% (MPF) 5 ML INJ ONE (10:10)
[2018-11-09] MEDS ORDERED: GENTAMICIN 80 MG INJ ONE (10:11)
[2018-11-09] MEDS ORDERED: DEXAMETHASONE 4 MG/ML 1 ML INJ ONE (10:11)
[2018-11-09] MEDS ORDERED: EPINEPHrine 1 MG INJ ONE (10:11)
[2018-11-09] MEDS ORDERED: NA HYALURONATE/CHONDROITIN 0.5 ML SYG ONE (10:11)
[2018-11-09] MEDS ORDERED: ACCU-CHEK XX ONE (10:30)
--- NOTE | 2018-11-09 12:03 | PAC ---
Date/Time of Note Date/Time of Note DATE: 11/09/18 TIME: 12:03 Post-Anesthesia Notes Post-Anesthesia Note Last documented vital signs Vital Signs Date Temp Pulse Resp B/P (MAP) Pulse Ox O2 O2 Flow FiO2 Time Delivery Rate 11/09/18 97.5 11:27 11/09/18 64 19 102/61 98 Room Air 10:44 (75) Activity: WNL Respiratory function: WNL Cardiovascular function: WNL Mental status: Baseline Pain reasonably controlled: Yes Hydration appropriate: Yes Nausea/Vomiting absent: Yes JAYLA MCKEON Nov 09, 2018 12:03
--- NOTE | 2018-11-09 14:54 | OPR ---
DATE OF OPERATION: 11/09/2018 PREOPERATIVE DIAGNOSIS: Nuclear sclerotic and posterior subcapsular cataract, left eye. POSTOPERATIVE DIAGNOSIS: Nuclear sclerotic and posterior subcapsular cataract, left eye. OPERATION PERFORMED: Cataract extraction with lens implant, left eye. SURGEON: Holly Shepard MD ANESTHESIA: Saul Suarez CRNA PROCEDURE: The patient was brought to the operating room and placed on the table with an IV in place and the patient attached to an panel monitor. Oxygen was given via face mask. After some intravenous sedation was administered, local anesthesia was given using Xylocaine 2% with epinephrine, mixed with Marcaine 0.5%. This was given in a lid block and retrobulbar injection. The p atient was then prepped and draped in the usual sterile manner. A wire lid speculum was inserted between the lids of the left eye. A Superblade was used to enter the anterior chamber at the corneoscleral limbus at the 10:30 o'clock position. A separate incision was made using a 3.0-mm keratome which entered the corneoscleral junction at the 12 o'clock position. Thr ough this 3-mm opening, an irrigating cystotome was introduced into the anterior chamber. The chamber was filled with Viscoat and an anterior capsulotomy was performed. Balanced salt solution was then u sed for hydrodissection of the lens. A phacoemulsification handpiece was then brought into the field and introduced into the anterior chamber. The lens nucleus was emulsified using a deep groove and cr acking the nucleus into quadrants. Following this, each quadrant was aspirated and emulsified at the pupillary margin. After this was completed, the irrigation/aspiration handpiece was brought to the field, introduced in to the posterior chamber, and the lens cortical material was removed. When this was completed, additi onal Viscoat was injected into the anterior and posterior chambers. The 3-mm opening had its internal lips enlarged, and then the posterior chamber intraocular lens mario uring 20.0 diopters ([employer] Model LI61AO) was then injected into the posterior c hamber using the lens injector system. After the leading haptic was introduced into the capsular bag and the lens optic was present in the center of the eye, the injector was removed and the trailing olmos ptic was grasped with non-toothed forceps and introduced into the capsular fold superiorly. A Sinskey hook was then used to rotate the intraocular lens so that the lips were oriented in the horizontal m eridian. One 10-0 nylon suture was placed across the wound. Prior to tying, the irrigation/aspiration handpiece was reintroduced into the anterior chamber to rem ove the Viscoat. Miochol was instilled to constrict the pupil, and then the 10-0 nylon suture was tie d. The ends were cut short and then the knot was buried. Then, 0.5 mL of dexamethasone and 0.5 mL of Ancef were injected into the sub-Tenon space in the infer ior fornix. Ciloxan drops were then placed on the surface of the eye. The speculum was removed and a patch was applied. The patient then left the operating room in satisfactory condition. Dictated By: HOLLY BOCANEGRA/BRUNILDA Conf#: [id number] DID#: [id number]
== END 2018-11-09 15:00 | disposition home or self-care (01) ==
LOC: SDS 06:30
PROVIDERS: ATTEND Ophthalmology
DX: H25.12 Age-related nuclear cataract, left eye (principal); I10 Essential (primary) hypertension; E78.5 Hyperlipidemia, unspecified; E11.9 Type 2 diabetes mellitus without complications; Z79.4 Long term (current) use of insulin
CPT/HCPCS: 66984; 82962; J0171; J0690; J1100; J1580; J1815; J3010; V2632